=== PATIENT | male | born 1935 | race Two or more races ===

== ENCOUNTER 2018-07-14 10:03 | Inpatient (IN) | payer OTHER ==
[~2018-07-14] VITALS: Ht 157.5 cm; Wt 72.6 kg
[~2018-07-14 10:03] MED LIST: CATAPRES0.2 MG; RIOMET500 MG/5 M
[2018-07-14] MEDS ORDERED: GRALISE300 MG PO (10:38)
[2018-07-14] MEDS ORDERED: GLIMEPIRIDE2 MG PO (10:38)
[2018-07-14] MEDS ORDERED: LOSARTAN-HCTZ1 EAC1 PO (10:39)
[2018-07-14] MEDS ORDERED: ATORVASTATIN CA10 MG PO (10:39)
[2018-07-14] MEDS ORDERED: SYNTHROID50 MCG (10:39)
[2018-07-14] MEDS ORDERED: NIFE60TA3 PO (10:39)
[2018-07-20] MEDS ORDERED: ACTIGALL300 MG PO (13:08)
== END 2018-07-20 14:55 | disposition home or self-care (01) | DRG 444 ==
LOC: ER 10:03 → MEDI 19:44
PROC: 4A033R1 Measurement of Arterial Saturation, Peripheral, Percutaneous Approach (ICD-10-PCS; 2018-07-14)
PROC: BW25Y0Z Computerized Tomography (CT Scan) of Chest, Abdomen and Pelvis using Other Contrast, Unenhanced and Enhanced (ICD-10-PCS; 2018-07-14)
PROC: BF37ZZZ Magnetic Resonance Imaging (MRI) of Pancreas (ICD-10-PCS; 2018-07-14)
PROC: B246ZZZ Ultrasonography of Right and Left Heart (ICD-10-PCS; 2018-07-15)
PROC: 3E0336Z Introduction of Nutritional Substance into Peripheral Vein, Percutaneous Approach (ICD-10-PCS; 2018-07-15)
PROC: 0F798ZZ Dilation of Common Bile Duct, Via Natural or Artificial Opening Endoscopic (ICD-10-PCS; principal; 2018-07-17)
PROC: 0FC98ZZ Extirpation of Matter from Common Bile Duct, Via Natural or Artificial Opening Endoscopic (ICD-10-PCS; 2018-07-17)
DX: K80.63 Calculus of gallbladder and bile duct with acute cholecystitis with obstruction (principal); K85.10 Biliary acute pancreatitis without necrosis or infection; I11.9 Hypertensive heart disease without heart failure; E11.65 Type 2 diabetes mellitus with hyperglycemia; I48.2 Chronic atrial fibrillation; Z79.01 Long term (current) use of anticoagulants; K57.10 Diverticulosis of small intestine without perforation or abscess without bleeding; E03.8 Other specified hypothyroidism; Z53.29 Procedure and treatment not carried out because of patient's decision for other reasons

== ENCOUNTER 2019-09-08 23:12 | Emergency (ER) | payer OTHER ==
[~2019-09-08] VITALS: Ht 170.2 cm; Wt 65.8 kg
[~2019-09-08 23:12] MED LIST changes: +ACTIGALL300 MG PO; +ATORVASTATIN CA10 MG PO; +GLIMEPIRIDE2 MG PO; +GRALISE300 MG PO; +LOSARTAN-HCTZ1 EAC1 PO; +NIFE60TA3 PO; +SYNTHROID50 MCG
== END 2019-09-09 00:43 | disposition left against medical advice (07) ==
LOC: ER 23:12
DX: Z53.20 Procedure and treatment not carried out because of patient's decision for unspecified reasons (principal)

== ENCOUNTER 2020-04-10 18:05 | Emergency (ER) | payer OTHER ==
[~2020-04-10] VITALS: Ht 170.2 cm; Wt 65.8 kg
[2020-04-10] MEDS ORDERED: XARELTO20 MG (18:27)
[2020-04-10] MEDS ORDERED: METFORMIN HCL500 M3 (18:28)
[2020-04-10] MEDS ORDERED: CATAPRES0.2 MG (18:28)
[2020-04-10] MEDS ORDERED: NIFEDIPINE20 MG (18:28)
[2020-04-10] MEDS ORDERED: GLIMEPIRIDE2 MG (18:29)
[2020-04-10] MEDS ORDERED: TYLENOL ARTHRI650 MG (18:29)
== END 2020-04-10 21:22 | disposition home or self-care (01) ==
LOC: ER 18:05
DX: M79.604 Pain in right leg (principal); M25.531 Pain in right wrist

== ENCOUNTER 2020-04-18 12:26 | Outpatient (CLI) | payer OTHER ==
[~2020-04-18 12:26] MED LIST changes: +GLIMEPIRIDE2 MG; +METFORMIN HCL500 M3; +NIFEDIPINE20 MG; +TYLENOL ARTHRI650 MG; +XARELTO20 MG
== END 2020-04-18 12:32 | disposition home or self-care (01) ==
LOC: NUCLEAR 12:26
PROVIDERS: ATTEND Internal Medicine
DX: I87.2 Venous insufficiency (chronic) (peripheral) (principal); I70.213 Atherosclerosis of native arteries of extremities with intermittent claudication, bilateral legs

== ENCOUNTER 2020-04-18 14:06 | Inpatient (IN) | payer OTHER ==
[~2020-04-18] VITALS: Ht 170.2 cm; Wt 65.8 kg
== END 2020-04-20 13:31 | disposition left against medical advice (07) | DRG 301 ==
LOC: ER 14:06 → MEDI 16:12 → SURG 16:12 → MEDI 04-19 17:09
PROVIDERS: ADMIT Internal Medicine; ATTEND Internal Medicine
DX: I77.1 Stricture of artery (principal); E11.9 Type 2 diabetes mellitus without complications; I11.9 Hypertensive heart disease without heart failure; E03.9 Hypothyroidism, unspecified; F41.8 Other specified anxiety disorders; Z89.612 Acquired absence of left leg above knee; Z53.29 Procedure and treatment not carried out because of patient's decision for other reasons

== ENCOUNTER 2020-05-10 07:49 | Outpatient (CLI) | payer OTHER | END 2020-05-10 08:10 | disposition home or self-care (01) | LOC: NUCLEAR 07:49 | DX: I82.813 Embolism and thrombosis of superficial veins of lower extremities, bilateral (principal) ==

== ENCOUNTER 2020-05-27 08:45 | Outpatient (CLI) | payer OTHER | END 2020-05-27 09:06 | disposition home or self-care (01) | LOC: NUCLEAR 08:45 | DX: I70.422 Atherosclerosis of autologous vein bypass graft(s) of the extremities with rest pain, left leg (principal) ==

== ENCOUNTER 2020-07-11 11:22 | Outpatient (CLI) | payer OTHER | END 2020-07-11 11:30 | disposition home or self-care (01) | LOC: RAD 11:22 | PROVIDERS: ATTEND Specialist | DX: R07.89 Other chest pain (principal) ==

== ENCOUNTER 2022-04-05 13:59 | Emergency (ER) | payer OTHER ==
[~2022-04-05] VITALS: Ht 170.2 cm; Wt 63.5 kg
[2022-04-05] MEDS ORDERED: PEPCID AC20 MG PO (21:58)
[2022-04-05] MEDS ORDERED: CIPRO500 MG PO (21:58)
[2022-04-05] MEDS ORDERED: DICY20TA PO (21:58)
[2022-04-05] MEDS ORDERED: ZOFRAN8 MG PO (21:58)
== END 2022-04-05 22:06 | disposition home or self-care (01) ==
LOC: ER 13:59
DX: R10.84 Generalized abdominal pain (principal); R19.7 Diarrhea, unspecified; R11.10 Vomiting, unspecified